=== PATIENT | female | born 1970 | race Caucasian/White ===

== ENCOUNTER 2024-10-22 08:21 | Observation (INO) ==
[~2024-10-22 08:21] MED LIST: KETAMINE HCL ONE; ULTANE GAS IN ONE
[2024-10-22] MEDS: LR 1,000 ML IV 1,000 ML IV ONE ×2 (08:30→15:28)
[2024-10-22 09:04] VITALS: BMI 38.7
[2024-10-22] MEDS: TORADOL 30 MG VIAL ONE (10:59)
[2024-10-22] MEDS ORDERED: DILAUDID INJ IVP PRN ×2 (11:14→14:06)
[2024-10-22] MEDS: VERSED IVP PRN (11:22)
[2024-10-22] MEDS: REGLAN INJ 10 MG VIAL IVP PRN (11:22)
[2024-10-22] MEDS: PEPCID 20 MG VIAL IVP PRN (11:22)
[2024-10-22] MEDS: ZOFRAN INJ 4 MG VIAL IVP PRN ×2 (11:23→15:43)
[2024-10-22] MEDS: LR 1,000 ML IV 1,000 ML IV PRN (11:29)
[2024-10-22] MEDS: NS 100 ML IV 100 ML ONE (11:36)
[2024-10-22] MEDS: ANCEF VIAL 1 GRAM ONE (11:36)
[2024-10-22] MEDS: DECADRON INJ ONE (11:47)
[2024-10-22] MEDS: VERSED ONE (11:47)
[2024-10-22] MEDS: ZOFRAN INJ 4 MG VIAL ONE (11:47)
[2024-10-22] MEDS: ZEMURON 100 MG VIAL ONE (11:47)
[2024-10-22] MEDS: PRECEDEX INJ VIAL ONE (11:47)
[2024-10-22] MEDS: HEPARIN SODIUM INJ 5000 UNITS ONE (11:47)
[2024-10-22] MEDS: REGLAN INJ 10 MG VIAL ONE (11:47)
[2024-10-22] MEDS: PEPCID 20 MG VIAL ONE (11:47)
[2024-10-22] MEDS: BRIDION ONE (11:47)
[2024-10-22] MEDS: DIPRIVAN VIAL 20 ML ONE (11:47)
[2024-10-22] MEDS: OFIRMEV IV 1000 MG VIAL 1,000 MG/100 ML VIAL IV ONE (11:47)
[2024-10-22] MEDS: FENTANYL VIAL INJ 100 mcg ONE (11:47)
[2024-10-22] MEDS: ANCEF VIAL 1 GRAM IV PRN (11:49)
[2024-10-22] MEDS: ZEMURON 100 MG VIAL IVP PRN (11:54)
[2024-10-22] MEDS ORDERED: XYLOCAINE 2 % (PLAIN) PRN (11:54)
[2024-10-22] MEDS: DIPRIVAN VIAL 150 ML IVP PRN (11:54)
[2024-10-22] MEDS: FENTANYL VIAL INJ 100 mcg IVP PRN (11:54)
[2024-10-22] MEDS: DECADRON INJ IVP PRN (12:00)
[2024-10-22] MEDS: EPHEDRINE SULFATE INJ ONE (12:02)
[2024-10-22] MEDS: NS 500 ML IV 500 ML IV ONE (12:05)
[2024-10-22] MEDS: MARCAINE 0.25% INJ ONE (12:06)
[2024-10-22] MEDS: NEO-SYNEPHRINE INJ IVP PRN (12:21)
[2024-10-22] MEDS: EPHEDRINE SULFATE INJ IVP PRN (12:21)
[2024-10-22] MEDS: VASOSTRICT INJ 20 UNITS VIAL ONE (12:25)
[2024-10-22] MEDS: OFIRMEV IV 1000 MG VIAL 1,000 MG/100 ML VIAL IV PRN (12:32)
[2024-10-22] MEDS: KETAMINE HCL IV PRN (13:04)
[2024-10-22] MEDS: VISIPAQUE 50 ML ONE (13:09)
[2024-10-22] MEDS: PRECEDEX INJ VIAL IVP PRN (13:39)
[2024-10-22] MEDS: NORVASC TAB 10 MG PO PRN (13:48)
[2024-10-22] MEDS ORDERED: ZOFRAN INJ 4 MG VIAL IVP PRN (14:06)
[2024-10-22] MEDS ORDERED: BARHEMSYS INJ IVP PRN (14:06)
[2024-10-22] MEDS ORDERED: REGLAN INJ 10 MG VIAL IVP PRN (14:06)
[2024-10-22] MEDS ORDERED: BENADRYL INJ 50 MG VIAL IVP PRN (14:06)
[2024-10-22] MEDS ORDERED: DANTRIUM PRN (14:13)
[2024-10-22] MEDS: BRIDION IVP PRN (14:14)
[2024-10-22] MEDS: DUONEB 0.5 MG/3 MG (3 mL) NEB ONE (14:34)
[2024-10-22] MEDS: NEO-SYNEPHRINE INJ ONE (15:28)
[2024-10-22] MEDS: PERCOCET TAB 5/325 MG PO PRN (15:31)
[2024-10-22] MEDS: NS 1,000 ML IV 1,000 ML IV SCH (15:32)
[2024-10-22] MEDS: COLACE CAP 100 MG PO SCH (20:06)
[2024-10-23 07:10] LABS: COR NA(FOR HYPERGLY) 144.0 mmol/L (136-145); CREATININE 1.26 mg/dL (0.55-1.02); eGFR NON BLACK RACES 47.0 (>60)
--- NOTE | 2024-10-23 07:49 | NOTE.SOAP ---
Soap Note Note for Day of Date of Exam: 10/23/24 Subjective Data Subjective Data: Patient is 54 y/o female, POD#1 ex fix anselmo for ankle decompression. She is currently resting comfortably in bed. She denies any shortness of breath, although on Oxygen that she confirms is a nightly regimen at home, denies calf pain. She admits to minimal sharp shooting pains on the lateral aspect of her foot on occasion, but reports that it is well controlled with current pain r egimen. Denies numbness, tingling, fever, chills. She states she was able to place some weight on it to get to the bathroom. Objective Data Objective Data: AO x 3 Vital Signs: stable Dermatological: Right leg and foot: External fixator is in place and in rectus position, pin sites are clean, dry and intact. No erythema, drainage or signs of infection. Mild edema present, expected postoperative swelling. Neurovascular: Toes are warm to touch, CFT < 3 sec digits 1-5 of the right foot, intact sensation and motor function is noted to the distal aspect of the fixator on right extremity. MSK: ROM is appreciated to the digits of the right foot. Assessment Assessment: Stable, postoperative course with minimal pain and neurovascular intact. No drainage appreciated to pin sites Plan Plan: Discharge home today with instructions for pin site care- patient knows to change out the foam dressing if they become saturated Continue oral pain medication as needed, begin Lovenox daily Elevate and ice under the knee Partial weightbearing in surgical shoe Patient is to follow up outpatient with Dr. Steiner
[2024-10-23] MEDS ORDERED: LOVENOX INJ 40 MG SYR SC SCH (09:00)
[2024-10-23 09:27] VITALS: O2SAT 98
[2024-10-23 09:45] VITALS: BP 133/69; PULSE 94; RESP 21; TEMP 97.2
[2024-10-23] MEDS ORDERED: ZOFRAN INJ 4 MG VIAL ONE (10:06)
[2024-10-23] MEDS: LINZESS PO SCH (10:11)
== END 2024-10-23 10:35 | disposition home or self-care (01) ==
LOC: OBS → MED/SURG 08:21 → EDSTATUS 12:55
PROVIDERS: ADMIT Obstetrics & Gynecology Obstetrics; ATTEND Obstetrics & Gynecology Obstetrics
PROC: APEXFIX (2024-10-22 12:00)
DX: M24.571 Contracture, right ankle; D49.2 Neoplasm of unspecified behavior of bone, soft tissue, and skin; M87.071 Idiopathic aseptic necrosis of right ankle; G89.18 Other acute postprocedural pain; Z99.81 Dependence on supplemental oxygen; I10 Essential (primary) hypertension